=== PATIENT | female | born 2000 | race Caucasian/White ===

== ENCOUNTER 2024-09-24 13:26 | Emergency (ER) | payer SELFPAY ==
[2024-09-24 13:39] VITALS: BP 119/68; PULSE 106; RESP 18; TEMP 36.6; O2SAT 100; BMI 23.3
--- NOTE | 2024-09-24 14:04 | US_ITS ---
WS: [id number] ULTRASOUND OB LIMITED. TECHNIQUE: Limited ultrasound for size and dates. CLINICAL INFORMATION: abdominal pain Unsure of last menstrual period COMPARISON: None. FINDINGS: Cervix is long and closed. Cervix measures 3.6 cm. Single interuterine gestation is identified with cephalic presentation. Placenta is fundal. Placenta grade 1. cardiac activity: 141 BPM. AGA: 36w1d BETTY by ultrasound: 10/21/2024 Estimated weight: 2767.0 g; 6 pounds 2 ounces BDP: 9.1 cm = 36w6d HC: 32.6 cm = 37w0d AC: 31.6 cm = 35w4d FEMUR LENGTH: 6.9 cm = 35w2d US/US OB >= 14 weeks fetus [id number] IMPRESSION: 1. Single intrauterine with visualized cardiac activity. AGA 36w1d w ith BETTY 10/21/2024. 2. Placenta is fundal. No evidence of abruption or previa. 3. Cephalic presentation. 4. Cervix is long and closed.
[2024-09-24 15:05] LABS: Basophils % 0.2 %; Eosinophils # 0.1 10^3/uL (0.0-0.8); Eosinophils % 0.7 %; Hematocrit 29.8 % (36-47); Lymphocytes # 2.7 10^3/uL (0.8-4.8); Lymphocytes % 17.7 %; Mean Corpuscular HGB Conc 31.9 g/dL (30-55); Mean Corpuscular Hemoglobin 26.8 pg (27-33); Mean Corpuscular Volume 83.9 fl (85-98); Mean Platelet Volume 8.7 fL (7.4-10.4); Monocytes # 0.9 10^3/uL (0.2-0.9); Neutrophils # 11.49 10^3/uL (1.8-7.7); Neutrophils % 74.4 %; Nucleated Red Blood Cells % 0 %; Platelet Count 655 10^3/cmm (157-399); Red Blood Count 3.55 10^6/uL (3.85-5.65); Red Cell Distribution Width 13.2 % (12.1-15.1); White Blood Count 15.44 10^3/uL (3.29-11.43)
--- NOTE | 2024-09-24 15:18 | ED_ITS ---
HPI - Abdominal Pain 2 General: Chief Complaint: Abdominal Pain Stated Complaint: preg with pain not sure how preg Time Seen by Provider: 09/24/24 14:20 History of Present Illness: 23-year-old female who presents emergenc y room with abdominal pain in . She is also has very poor dentition and is having some dental pain. OB sent her to the emergency room to be evaluated prior to going to the OB floor. She had no vaginal bleeding. No contractions. No vaginal discharge. She has had no care and has no idea how far along she is. She just moved here from elsewhere. No fevers. No chest pain. No shortness of breath. She complains of pain in her upper abdomen the top of her fundus. She complains of sharp pains that are intermittent. She has had normal movements. Related Data Previous Rx's Medication Instructions Recorded clindamycin HCl 300 mg capsule 300 mg PO Q6H 10 days #40 caps 09/24/24 Allergies Allergy/AdvReac Type Severity Reaction Status Date / Time No Known Allergies Allergy Verified 09/24/24 13:47 Review of Systems 2 Narrative: Constitutional symptoms: Negative except as documented in HPI. Skin symptoms: Negative except as documented in HPI. Eye symptoms: Negative except as documented in HPI. ENMT symptoms: Negative except as documented in HPI. Respiratory symptoms: Negative except as documented in HPI. Cardiovascular symptoms: Negative except as documented in HPI. Gastrointestinal symptoms: Negative except as documented in HPI. Genitourinary symptoms: Negative except as documented in HPI. Musculoskeletal symptoms: Negative except as documented in HPI. Neurologic symptoms: Negative except as documented in HPI. Psychiatric symptoms: Negative except as documented in HPI. Endocrine symptoms: Negative except as documented in HPI. Physical Exam 2 Narrative: EXAM NARRATIVE: General: Alert, no acute distress. Skin: Warm, dry. Head: Normocephalic, atraumatic. Neck: Supple, trachea midline. Eye: Extraocular movements are intact. Ears, nose, mouth and throat: mucosa moist. Patient has extremely poor dentition Cardiovascular: Regular, Normal peripheral perfusion. Respiratory: Lungs are clear to auscultation, respirations are non-labored, breath sounds are equal, Symmetrical chest wall expansion. Gastrointestinal: Soft, gravid, nontender Musculoskeletal: Normal ROM, no deformity. Neurological: Alert and oriented, No focal neurological deficit observed. Psychiatric: Cooperative, appropriate mood & affect. Course 2 Vital Signs: Vital signs: Vital Signs Temperature 97.8 F 09/24/24 13:39 Pulse Rate 93 09/24/24 16:49 Respiratory Rate 18 09/24/24 13:39 Blood Pressure 121/72 09/24/24 16:49 Pulse Oximetry 100 09/24/24 16:49 Oxygen Delivery Me thod Room Air 09/24/24 13:39 MDM - Abdominal Pain Medical Decision Making Ultrasound OB shows 36-week gestation with heart rate of 144. Placenta is fundal. No abruption or previa. Cervix is closed. This was reviewed and interpreted by myself the emergency room physician. I also reviewed the radiology report. Lab review: I reviewed and interpreted lab work personally. Patient has some mild leukocytosis. Mild anemia with a hemoglobin of 9.5. No renal failure. Urinalysis is negative for infection. Blood type was sent. heart tones were measured and were in the 140s. Patient is being taken directly to the obstetric floor for evaluation there. Assessment and plan: Dental infection 36-week No care Abdominal pain in -First dose clinda and p.o. Tylenol in the emergency room ? Discharged home - Discussed findings and plan with patient. Answered any questions. - All laboratory values were reviewed and interpreted personally by myself, the ER physician - All imaging was reviewed and interpreted personally by myself, the ER physician. - Evaluation and treatment of this problem were appropriate in the emergency setting Lab Data 09/24/24 15:00 09/24/24 15:00 Labs/Radiology: Radiology Impressions Ultrasound 09/24/24 14:04 IMPRESSION: 1. Single intrauterine with visualized cardiac activity. AGA 36w1d with BETTY 10/21/2024. 2. Placenta is fundal. No evidence of abruption or previa. 3. Cephalic presentation. 4. Cervix is long and closed. Laboratory Results WBC 15.44 10^3/uL (3.29-11.43) H 09/24/24 15:00 RBC 3.55 10^6/uL (3.85-5.65) L 09/24/24 15:00 Hgb 9.50 g/dL (11.27-16.99) L 09/24/24 15:00 Hct 29.8 % (36-47) L 09/24/24 15:00 MCV 83.9 fl (85-98) L 09/24/24 15:00 MCH 26.8 pg (27-33) L 09/24/24 15:00 MCHC 31.9 g/dL (30-55) 09/24/24 15:00 RDW 13.2 % (12.1-15.1) 09/24/24 15:00 Plt Count 655 10^3/cmm (157-399) H 09/24/24 15:00 MPV 8.7 fL (7.4-10.4) 09/24/24 15:00 Neut % (Auto) 74.4 % 09/24/24 15:00 Lymph % (Auto) 17.7 % 09/24/24 15:00 [place] % (Auto) 6.0 % 09/24/24 15:00 Eos % (Auto) 0.7 % 09/24/24 15:00 Baso % (Auto) 0.2 % 09/24/24 15:00 Neut # (Auto) 11.49 10^3/uL (1.8-7.7) H 09/24/24 15:00 Lymph # (Auto) 2.7 10^3/uL (0.8-4.8) 09/24/24 15:00 [place] # (Auto) 0.9 10^3/uL (0.2-0.9) 09/24/24 15:00 Eos # (Auto) 0.1 10^3/uL (0.0-0.8) 09/24/24 15:00 Baso # (Auto) 0.0 10^3/uL (0.0-0.1) 09/24/24 15:00 Nucleated RBC % (auto) 0 % 09/24/24 15:00 Nucleated RBCs # 0.0 /100WBC 09/24/24 15:00 Sodium 133 mmol/L (136-145) L 09/24/24 15:00 Potassium 4.0 mmol/L (3.5-5.1) 09/24/24 15:00 Chloride 100 mmol/L (98-107) 09/24/24 15:00 Carbon Dioxide 24 mmol/L (22-29) 09/24/24 15:00 Anion Gap 13.0 (5-19) 09/24/24 15:00 BUN 7 mg/dL (6-20) 09/24/24 15:00 Creatinine 0.4 mg/dL (0.5-0.9) L 09/24/24 15:00 GFR Calculation 194.5 mL/min (90-130) H 09/24/24 15:00 Glucose 73 mg/dL (65-115) 09/24/24 15:00 Calculated Osmolality 273 mOsm/kg (285-295) L 09/24/24 15:00 Calcium 8.4 mg/dL (8.5-10.5) L 09/24/24 15:00 Total Bilirubin 0.2 mg/dL (0.15-1.2) 09/24/24 15:00 AST 12 U/L (0-32) 09/24/24 15:00 ALT 8 U/L (0-33) 09/24/24 15:00 Alkaline Phosphatase 186 U/L (35-105) H 09/24/24 15:00 Total Protein 6.8 g/dL (6.6-8.7) 09/24/24 15:00 Albumin 3.5 g/dL (3.5-5.2) 09/24/24 15:00 Globulin 3.3 g/dL (1.3-4.6) 09/24/24 15:00 Urine Color Yellow (Yellow) 09/24/24 15:17 Urine Appearance Clear (CLEAR) 09/24/24 15:17 Urine pH 6.5 (5-7) 09/24/24 15:17 Ur Specific [place] 1.008 (1.005-1.030) 09/24/24 15:17 Urine Protein Negative (Negative) 09/24/24 15:17 Urine Glucose (UA) Negative (Normal) 09/24/24 15:17 Urine Ketones Negative (Negative) 09/24/24 15:17 Urine Blood Negative (Negative) 09/24/24 15:17 Urine Nitrate Negative (Negative) 09/24/24 15:17 Urine Bilirubin Negative (Negative) 09/24/24 15:17 Urine Urobilinogen 0.2 mg/dL (Negative) 09/24/24 15:17 Ur Leukocyte Esterase Trace (Negative) A 09/24/24 15:17 Urine RBC 0-2 /hpf (0-2) 09/24/24 15:17 Urine WBC 0-5 /hpf (0-5) 09/24/24 15:17 Ur Squamous Epith Cells 0-5 /hpf (0-5) 09/24/24 15:17 Amorphous Sediment Not Reportable 09/24/24 15:17 Urine Bacteria None seen /hpf (NONE) 09/24/24 15:17 Hyaline Casts 0-4 /lpf H 09/24/24 15:17 Blood Type O Positive 09/24/24 16:06 Rho(D) Type Rh positive 09/24/24 16:06 Antibody Screen Negative 09/24/24 16:06 All radiology interpretation(s) finalized by discharge Discharge Plan Discharge Patient Disposition: Home Clinical Impression: 36 weeks gestation of , No care in current , Dental infection Condition: Stable Prescriptions: New clindamycin HCl 300 mg capsule 300 mg PO Q6H 10 Days Qty: 40 0RF Discharge Orders: Discharge ED (Routine); Ordered 09/24/24 Ordered By: Tammy Saucedo Referrals: Ailyn Lew DO [Physician] - 1-3 days (Please call for an appointment with Dr. Lew or graphic art technician of your choosing. This needs to be done as soon as possible.) Discharge Diet: Usual diet Discharge Activity: Increase activity as tolerated Patient Instructions: Dental Abscess (ED), Abdominal Pain in (ED) Activity Restrictions/Additional Instructions: Please go directly to the obstetrics floor for evaluation. You need to follow-up with a dentist as soon as possible. Thank you for choosing [facility] for your healthcare needs today. Please realize this is an emergency room and that we are providing you with a medical screening exam and this may not be complete and all inclusive of all the testing and or work up that you may need to determine your ailment or severity of your illness. You have been screened and evaluated and felt safe for discharge. Health conditions do change or evolve sometimes and as such it is important that you follow up with your Primary Doctor to be re checked, 3-5 days is a general good time frame for follow up. You are always welcome to return to the ED for re assessment if your symptoms are worsening or you have new concerns Coding Level of Care Code ED [employer] for Marck Whaley
[2024-09-24 15:21] LABS: Alanine Aminotransferase 8 U/L (0-33); Albumin Level 3.5 g/dL (3.5-5.2); Alkaline Phosphatase 186 U/L (35-105); Aspartate Amino Transferase 12 U/L (0-32); Blood Urea Nitrogen 7 mg/dL (6-20); Calcium 8.4 mg/dL (8.5-10.5); Carbon Dioxide 24 mmol/L (22-29); Chloride 100 mmol/L (98-107); Creatinine Clr Calc Pharmacy 195.1457; Globulin 3.3 g/dL (1.3-4.6); Glomerular Filtration Rate 194.5 mL/min (90-130); Glucose 73 mg/dL (65-115); Osmolality Calculated 273 mOsm/kg (285-295); Sodium 133 mmol/L (136-145); Total Bilirubin 0.2 mg/dL (0.15-1.2); Total Protein 6.8 g/dL (6.6-8.7)
[2024-09-24 15:25] LABS: Bilirubin Urine Negative (Negative); Blood Urine Negative (Negative); Glucose Urine UA Negative (Normal); Ketones Urine Negative (Negative); Leukocyte Esterase Urine Trace (Negative); Nitrate Urine Negative (Negative); Protein Urine Negative (Negative); Specific Gravity, Urine 1.008 (1.005-1.030); Urine Appearance Clear (CLEAR); Urine Color Yellow (Yellow); Urobilinogen Urine 0.2 mg/dL (Negative); pH Urine 6.5 (5-7)
[2024-09-24 15:30] LABS: Bacteria Urine None Seen /hpf; Hyaline Casts Urine 0-4 /lpf; RBC Urine 0-2 /hpf (0-2); Squamous Epithelial Cell Urine 0-5 /hpf (0-5); WBC Urine 0-5 /hpf (0-5)
[2024-09-24] MEDS: acetaminophen 500 mg Tablet 1000 MG PO (16:13)
[2024-09-24] MEDS: clindamycin 150 mg Capsule 300 MG PO (16:13)
[2024-09-24 16:49] VITALS: BP 121/72; PULSE 93; O2SAT 100
[2024-09-24 19:21] LABS: Amphetamines Screen Urine Negative (Negative); Barbiturates Screen Urine Negative (Negative); Benzodiazepines Screen Urine Negative (Negative); Cocaine Screen Urine Negative (Negative); Opiate Screen Urine Negative (Negative); PCP Screen Urine Negative (Negative); THC Screen Urine Positive (Negative)
== END 2024-09-24 16:51 | disposition home or self-care (01) ==
PROVIDERS: Emergency Provider Emergency Medicine
DX: O98.813 Other maternal infectious and parasitic diseases complicating pregnancy, third trimester (principal); K08.89 Other specified disorders of teeth and supporting structures; Z3A.36 36 weeks gestation of pregnancy; K04.7 Periapical abscess without sinus; R10.9 Unspecified abdominal pain; O26.93 Pregnancy related conditions, unspecified, third trimester
CPT/HCPCS: 36415; 76805; 80053; 80306; 81001; 85025; 86850; 86900; 99284

== ENCOUNTER → 2024-09-29 13:17 | Outpatient (BNVA) | payer OTHER, MEDICAID, SELFPAY | PROVIDERS: Visit Provider Obstetrics & Gynecology | DX: O09.30 Supervision of pregnancy with insufficient antenatal care, unspecified trimester (principal); Z3A.36 36 weeks gestation of pregnancy | CPT/HCPCS: 80307; 82950; 84315; 87081; 87491; 87591; 87624 ==

== ENCOUNTER → 2024-09-30 13:21 | Outpatient (BNVA) | payer OTHER, MEDICAID, SELFPAY | PROVIDERS: Visit Provider Obstetrics & Gynecology | DX: Z36.87 Encounter for antenatal screening for uncertain dates (principal); O09.32 Supervision of pregnancy with insufficient antenatal care, second trimester; Z36.4 Encounter for antenatal screening for fetal growth retardation; Z3A.36 36 weeks gestation of pregnancy | CPT/HCPCS: 76816 ==

== ENCOUNTER → 2024-10-05 13:16 | Outpatient (BNVA) | payer OTHER, MEDICAID, SELFPAY | PROVIDERS: Visit Provider Obstetrics & Gynecology | DX: O09.30 Supervision of pregnancy with insufficient antenatal care, unspecified trimester (principal); O99.320 Drug use complicating pregnancy, unspecified trimester; F19.10 Other psychoactive substance abuse, uncomplicated | CPT/HCPCS: 80307; 84315 ==